=== PATIENT | female | born 1950 ===

== ENCOUNTER 2017-04-27 09:55 | Emergency (ER) | payer MEDICARE, OTHER, SELFPAY ==
--- NOTE | 2017-04-27 10:22 | EDM.PDOC ---
ED HPI GENERAL MEDICAL PROBLEM - General Chief Complaint: Upper Extremity Injury/Pain Stated Complaint: RIGHT ARM INJURY Time Seen by Provider: 04/27/17 10:11 Source of Information: Reports: Patient History Limitations: Reports: No Limitations - History of Present Illness INITIAL COMMENTS - FREE TEXT/NARRATIVE: The patient presents with right wrist pain, edema and deformity. She fell on the ice yesterday and injured her right wrist. She denies any other injury. She did not hit her head or hurt her neck. She is right handed. She has no other medical problems. 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 [No Known Home Meds] 04/27/17 [History] Review of Systems - Review of Systems Review Of Systems: See Below Constitutional: Reports: No Symptoms Eyes: Reports: No Symptoms Ears: Reports: No Symptoms Nose: Reports: No Symptoms Mouth/Throat: Reports: No Symptoms Respiratory: Reports: No Symptoms Cardiovascular: Reports: No Symptoms GI/Abdominal: Reports: No Symptoms Genitourinary: Reports: No Symptoms Musculoskeletal: Reports: Other (Pain and deformity to the right wrist) ED EXAM, GENERAL - Physical Exam Exam: See Below Exam Limited By: No Limitations General Appearance: Alert, No Apparent Distress Ears: Normal External Exam Nose: Normal Inspection Head: Atraumatic, Normocephalic Neck: Normal Inspection Respiratory/Chest: No Respiratory Distress, Lungs Clear, Normal Breath Sounds Cardiovascular: Regular Rate, Rhythm, No Edema, No Murmur GI/Abdominal: Soft, Non-Tender, No Organomegaly, No Mass Back Exam: Normal Inspection Extremities: Other (Pain upon palpation to the right wrist. Obvious deformity. Good sensation and pulses. She can move her fingers.) ED TRAUMA EXTREMITY PROCEDURES - Splinting Right Upper Extremity Splint Site: Right wrist Pre-Procedure NV Status: Normal Post-Procedure NV Status: Normal Splint Material: Fiberglass Splint Design: Volar Applied & Form Fitted By: Provider Provider Post-Splint Application NV Check: NV Status Normal, Good Position Complications: No ED PROCEDURAL SEDATION - Pre Procedure Indications: fracture reduction Preparations: procedure explained, consent signed, oxygen, continuous pulse oximeter, continuous cardiac monitor technician, constant attendance - Physical Exam Airway: normal anatomy Cardiovascular: normal heart sounds Respiratory: normal breath sounds Neurological: alert, responsive, NAD - Procedure Sedation Sedation: versed (parenteral), fentanyl ASA Classification: 1 (Normal healthy patient) - Intra Procedure Condition during procedure: lightly sedated Complications: none Reversal: none - Post Procedure Condition after procedure: alert, NAD, responds to verbal stimuli - Discharge Condition Patient returned to pre-procedure baseline: Yes Alert prior to discharge: Yes Ambulatory with assistance: Yes Vital signs normal: Yes Course - Vital Signs Last Recorded V/S: Last Vital Signs Temp 97.3 F 04/27/17 10:10 Pulse 103 H 04/27/17 10:10 Resp BP 169/94 H 04/27/17 10:10 Pulse Ox 96 04/27/17 10:10 - Orders/Labs/Meds Orders: Active Orders 24 hr Category Date Time Status Peripheral IV Care [RC] . DIRECTED Care 04/27/17 10:30 Active Wrist 2V Rt [CR] Stat Exams 04/27/17 11:17 Taken Wrist Comp Min 3V Rt [CR] Stat Exams 04/27/17 10:14 Taken Lactated Ringers [Ringers, Lactated] 1,000 ml Med 04/27/17 10:30 Active IV ASDIRECTED Sodium Chloride 0.9% [Saline Flush] Med 04/27/17 10:30 Active 10 ml FLUSH ASDIRECTED PRN Peripheral IV Insertion Adult [OM.PC] Routine Oth 04/27/17 10:30 Ordered Medication Orders Lactated Ringer's (Ringers, Lactated) 1,000 mls @ 100 mls/hr IV ASDIRECTED ANA Last Admin: 04/27/17 10:54 Dose: 100 mls/hr Sodium Chloride (Saline Flush) 10 ml FLUSH ASDIRECTED PRN PRN Reason: Keep Vein Open Last Admin: 04/27/17 10:55 Dose: 10 ml Meds: Medications Generic Name Dose Route Start Last Admin Trade Name Freq PRN Reason Stop Dose Admin Lactated Ringer's 1,000 mls @ 100 mls/hr 04/27/17 10:30 04/27/17 10:54 Ringers, Lactated IV 100 mls/hr ASDIRECTED ANA Administration Sodium Chloride 10 ml 04/27/17 10:30 04/27/17 10:55 Saline Flush FLUSH 10 ml ASDIRECTED PRN Administration Keep Vein Open Discontinued Medications Generic Name Dose Route Start Last Admin Trade Name Sulaiman PRN Reason Stop Dose Admin Fentanyl 50 mcg 04/27/17 10:31 04/27/17 10:59 Sublimaze IVPUSH 04/27/17 10:32 50 mcg ONETIME ONE Administration Fentanyl Confirm 04/27/17 11:17 04/27/17 11:43 Sublimaze Administered 04/27/17 11:18 100 mcg Dose Administration 100 mcg .ROUTE .STK-MED ONE Midazolam HCl 2 mg 04/27/17 10:30 04/27/17 11:00 Versed 1 Mg/Ml IVPUSH 04/27/17 10:31 2 mg ONETIME ONE Administration - Re-Assessments/Exams Free Text/Narrative Re-Assessment/Exam: 04/27/17 10:22 I have ordered an x-ray. 04/27/17 12:21 The x-ray shows a distal radius fracture. I will need to reduce this. I ordered an IV LR at 100mL/hr, versed 2mg IV and fentanyl. I attempted to reduce it. I was unable to reduce it fully. I called Dr Brooke and he can see the patient today. Departure - Departure Time of Disposition: 12:25 Disposition: Home, Self-Care 01 Condition: Good Clinical Impression: Fall Qualifiers: Encounter type: initial encounter Qualified Code(s): W19.XXXA - Unspecified fall, initial encounter Distal radius fracture, right Qualifiers: Encounter type: initial encounter Fracture type: closed Fracture morphology: other fracture Qualified Code(s): S52.591A - Other fractures of lower end of right radius, initial encounter for closed fracture - Discharge Information Referrals: PCP,None [Primary Care Provider] - Asher Brooke MD [Physician] - Forms: ED Department Discharge Additional Instructions: Go directly to Dr Brooke's office. He is planning on reducing this better today. - My Orders Last 24 Hours: My Active Orders 04/27/17 10:14 Wrist Comp Min 3V Rt [CR] Stat 04/27/17 10:30 Peripheral IV Care [RC] . DIRECTED Lactated Ringers [Ringers, Lactated] 1,000 ml IV ASDIRECTED Sodium Chloride 0.9% [Saline Flush] 10 ml FLUSH ASDIRECTED PRN Peripheral IV Insertion Adult [OM.PC] Routine 04/27/17 11:17 Wrist 2V Rt [CR] Stat - Assessment/Plan Last 24 Hours: My Active Orders 04/27/17 10:14 Wrist Comp Min 3V Rt [CR] Stat 04/27/17 10:30 Peripheral IV Care [RC] . DIRECTED Lactated Ringers [Ringers, Lactated] 1,000 ml IV ASDIRECTED Sodium Chloride 0.9% [Saline Flush] 10 ml FLUSH ASDIRECTED PRN Peripheral IV Insertion Adult [OM.PC] Routine 04/27/17 11:17 Wrist 2V Rt [CR] Stat
[2017-04-27] MEDS ORDERED: Midazolam 1 MG/ML 2 ML SDV IVPUSH ONE (10:30)
[2017-04-27] MEDS ORDERED: Lactated Ringers 1,000 ML IV SCH (10:30)
[2017-04-27] MEDS ORDERED: Sodium Chloride 0.9% 10 ML Syringe FLUSH PRN (10:30)
[2017-04-27] MEDS ORDERED: fentaNYL 100 MCG/2 ML SDV IVPUSH ONE ×2 (10:31→12:32)
[2017-04-27] MEDS ORDERED: fentaNYL 100 MCG/2 ML SDV ONE (11:17)
--- NOTE | 2017-04-27 16:07 | CR ---
Right wrist: Four views of the right wrist are obtained. Comminuted and displaced distal right radial fracture is seen. Distal ulna appears intact. Joint space narrowing is noted off the distal navicular bone. Soft tissue swelling is noted. Impression: 1. Displaced and comminuted distal right radial fracture with soft tissue swelling. 2. Degenerative change as noted above. Diagnostic code #3
--- NOTE | 2017-04-27 16:07 | CR ---
Right wrist: Two views of the right wrist were obtained. Comparison: Previous study performed earlier on the same day (time 10:12 AM). Improved alignment of previous fracture. Continued posterior displacement is seen of the distal fragment by approximately 6 to 7 mm. Alignment on the AP view is anatomic. Stable degenerative change as previously noted. Stable soft tissue swelling is seen. Impression: 1. Improved alignment of previous distal radial fracture but continued posterior displacement of the distal fragment by 6 to 7 mm. 2. Other stable findings as noted above. Diagnostic code #3
--- NOTE | 2017-04-28 08:38 | CR ---
Right wrist: Eight fluoroscopic spot views were obtained utilizing C-arm device of the right wrist. Comparison: Previous studies performed earlier on the same day. Previous posterior displacement of the distal epiphyseal fragment shows evidence of continued reduction on the final films. Final alignment is close to anatomic. Final films shows fiberglass cast in place. Impression: 1. Continued reduction of previous distal radial fracture. Fiberglass cast in place on final films. Diagnostic code #2
== END 2017-04-27 13:00 | disposition home or self-care (01) ==
LOC: JD.ED 09:55
DX: S52.501A Unspecified fracture of the lower end of right radius, initial encounter for closed fracture (principal); W00.0XXA Fall on same level due to ice and snow, initial encounter
CPT/HCPCS: 25605; 73100; 73110; 76000; 96361; 96374; 96375; 99152; 99153; 99284; J2250; J3010; J7050; J7120; 25565

== ENCOUNTER 2017-04-27 14:42 | Day surgery (SDC) | payer SELFPAY ==
[2017-04-27] MEDS ORDERED: Midazolam 1 MG/ML 2 ML SDV ONE (15:14)
[2017-04-27] MEDS ORDERED: Ketamine 500 mg/10 ML MDV ONE (15:14)
[2017-04-27] MEDS ORDERED: fentaNYL 100 MCG/2 ML SDV ONE (15:14)
[2017-04-27] MEDS ORDERED: Propofol 200 MG/20 ML SDV ONE (15:14)
[2017-04-27] MEDS ORDERED: Lidocaine 1% 4 ML ONE (15:17)
[2017-04-27] MEDS ORDERED: Sodium Chloride 0.9% 10 ML Syringe FLUSH PRN (15:21)
[2017-04-27] MEDS ORDERED: Lidocaine 1%/Sod Bicarbonate in NS 8.4% 1 ML Syringe IV PRN (15:21)
[2017-04-27] MEDS ORDERED: Lactated Ringers 1,000 ML IV SCH (15:30)
--- NOTE | 2017-04-27 15:32 | PCM.PREANE ---
Preanesthetic Assessment - Procedure Proposed Procedure: Closed Reduction Right Wrist - Anesthesia/Transfusion/Family Hx Anesthesia History: Prior Anesthesia Without Reaction Family History of Anesthesia Reaction: No Transfusion History: No Prior Transfusion(s) - Review of Systems General: No Symptoms Pulmonary: No Symptoms Cardiovascular: No Symptoms Gastrointestinal: No Symptoms Neurological: No Symptoms Other: Reports: None - Physical Assessment NPO Status Date: 04/27/17 NPO Status Time: 08:30 O2 Sat by Pulse Oximetry: 97 Respiratory Rate: 20 Vital Signs: Last Vital Signs Temp 37.5 C 04/27/17 14:50 Pulse 90 04/27/17 14:50 Resp 20 04/27/17 14:50 BP 150/89 H 04/27/17 14:50 Pulse Ox 97 04/27/17 14:50 Height: 1.65 m Weight: 57.606 kg ASA Class: 1E Mental Status: Alert & Oriented x3 Airway Class: Mallampati = 2 Dentition: Reports: Normal Dentition Thyro-Mental Finger Breadths: 3 Mouth Opening Finger Breadths: 3 ROM/Head Extension: Full Lungs: Clear to Auscultation, Normal Respiratory Effort Cardiovascular: Regular Rate, Regular Rhythm - Allergies Allergies/Adverse Reactions: Allergies Allergy/AdvReac Type Severity Reaction Status Date / Time No Known Allergies Allergy Verified 04/27/17 15:19 - Acknowledgements Anesthesia Type Planned: MAC Pt an Appropriate Candidate for the Planned Anesthesia: Yes Alternatives and Risks of Anesthesia Discussed w Pt/Guardian: Yes Pt/Guardian Understands and Agrees with Anesthesia Plan: Yes PreAnesthesia Questionnaire - Past Health History Medical/Surgical History: Denies Medical/Surgical History - SUBSTANCE USE Smoking Status *Q: Never Smoker Recreational Drug Use History: No - HOME MEDS Home Medications: Home Meds Ibuprofen [Advil] 100 mg PO Q4HR PRN 04/27/17 [History] - CURRENT (IN HOUSE) MEDS Current Meds: Current Medications Discontinued Medications Fentanyl (Sublimaze) Confirm Administered Dose 200 mcg .ROUTE .STK-MED ONE Stop: 04/27/17 15:15 Lidocaine HCl (Xylocaine-Mpf 1%) Confirm Administered Dose 4 mls @ as directed .ROUTE .STK-MED ONE Stop: 04/27/17 15:18 Ketamine HCl (Ketalar) Confirm Administered Dose 500 mg .ROUTE .STK-MED ONE Stop: 04/27/17 15:15 Midazolam HCl (Versed 1 Mg/Ml) Confirm Administered Dose 2 mg .ROUTE .STK-MED ONE Stop: 04/27/17 15:15 Propofol (Diprivan 20 Ml) Confirm Administered Dose 400 mg .ROUTE .STK-MED ONE Stop: 04/27/17 15:15
[2017-04-27] MEDS ORDERED: Ondansetron 4 MG/2 ML SDV IVPUSH PRN (16:03)
[2017-04-27] MEDS ORDERED: Ketorolac 15 MG/ML SDV IVPUSH PRN (16:03)
[2017-04-27] MEDS ORDERED: Acetaminophen/HYDROcodone 325-5 MG Tab PO PRN (16:03)
[2017-04-27] MEDS ORDERED: Ondansetron 4 MG/2 ML SDV ONE (16:29)
--- NOTE | 2017-04-27 16:48 | PCM48HPAN ---
Post Anesthesia Note - EVALUATION WITHIN 48HRS OF ANESTHETIC Vital Signs in Normal Range: Yes Patient Participated in Evaluation: Yes Respiratory Function Stable: Yes Airway Patent: Yes Cardiovascular Function Stable: Yes Hydration Status Stable: Yes Pain Control Satisfactory: Yes Nausea and Vomiting Control Satisfactory: Yes Mental Status Recovered: Yes
--- NOTE | 2017-04-28 09:31 | HP ---
DATE OF ADMISSION: 04/27/2017 HISTORY OF PRESENT ILLNESS: This is the first orthopedic outpatient admission for surgery for this 66-year- old female who suffered a fall on the ice on 04/26/2017 with injury to her right wrist. The patient presented to the emergency room on April 27, evaluated with x-rays, found to have displaced fracture. The emergency room physician attempted a closed reduction, which failed. The patient was referred to the [facility]opedic Clinic with a splint in place for evaluation. After evaluation in the clinic, the fracture displacement was continued to be noted. The patient is now being scheduled for an outpatient surgical reduction with anesthesia of the displaced fracture of the right wrist. The procedure has been outlined to her. She understands the procedure and has consented to it. ALLERGIES: No known drug allergies. PAST MEDICAL HISTORY: A very healthy 66-year-old female. CURRENT MEDICATIONS: Currently on no medications. PAST SURGICAL HISTORY: Negative. Notes no previous history of anesthesia type problems. She has a negative bleeding history, negative blood clot history. SOCIAL HISTORY: She is a nonsmoker. Alcohol is extremely rare. PHYSICAL EXAMINATION: GENERAL: Today, reveals a well-developed, well-nourished 66-year-old female, in moderate distress. HEAD, EYES, EARS, NOSE, AND THROAT: Normocephalic. NECK: Supple. CHEST: Clear. COR: Regular rate. ABDOMEN: Soft. GENITOURINARY: Intact. EXTREMITIES: Examination of the right wrist reveals positive pain to palpation over the distal wrist area. Positive deformity noted. Circulation intact. RADIOLOGY: X-rays reveal a displaced dorsal distal radius fracture completely off the end of the bone. ASSESSMENT: Displaced Colles fracture, distal right radius. PLAN: Plan is for the patient to undergo a closed reduction. MMODAL /[id number]
--- NOTE | 2017-04-28 09:31 | OR ---
DATE OF OPERATION: 04/27/2017 SURGEON: Asher Brooke MD PREOPERATIVE DIAGNOSIS: Displaced distal radius fracture, right wrist. POSTOPERATIVE DIAGNOSIS: Displaced distal radius fracture, right wrist. ANESTHESIA: General. OPERATION PERFORMED: Closed reduction of distal radius fracture with application of short-arm cast with fluoroscopic control. DESCRIPTION OF PROCEDURE: The patient was taken to the operative room in a supine position and placed under general anesthesia. With adequate anesthesia obtained, the operation proceeded with placement of the right hand in a fingertrap traction unit. With the displaced and shortened fracture unit, distal radius was complete and 100% displacement. Approximately, 10 pounds was applied to the upper arm, and then fluoroscopy was brought in to evaluate. After approximately 7-10 minutes of distraction, another 5 pounds was added up to 15 pounds. This gained separation of the fracture site so that it could be gently manipulated into the bone and back into its original position. Once the fracture was reduced, the fluoroscopy was then used to evaluate. Good reduction was obtained. 10 pounds of weight was slowly released off the traction unit to allow impaction of the fragments and that was re-checked with fluoroscopy and then the operation then proceeded with application of a short-arm cast. X-rays and fluoroscopy were then used to evaluate the AP, lateral, and obliques. Good position was maintained with the short-arm cast. The patient was stable with the wrist slightly flexed. The patient tolerated the procedure well. She left the operating room in a stable condition to room for recovery. ESTIMATED BLOOD LOSS: MMODAL /[id number]
== END 2017-04-27 18:18 | disposition home or self-care (01) ==
LOC: JD.SDS 14:42
PROVIDERS: ATTEND Specialist
DX: S52.501A Unspecified fracture of the lower end of right radius, initial encounter for closed fracture (principal)
CPT/HCPCS: 25605; 36415; 76000; 80048; 85025; A9270; J2250; J2405; J3010; J7120; 01820; J2704